=== PATIENT | female | born 1995 | race Caucasian/White ===

== ENCOUNTER 2017-04-20 14:27 | Emergency (ER) | payer OTHER ==
[~2017-04-20] VITALS: Ht 152.4 cm; Wt 59.9 kg
[2017-04-20 15:03] VITALS: BP 109/73
--- NOTE | 2017-04-20 17:50 | ED SKIN/ALLERGY COMPLAINT ---
History of Present Illness General Chief Complaint: Animal/Insect Bite Stated Complaint: TICK BITE Source: patient Exam Limitations: no limitations Vital Signs & Intake/Output Vital Signs & Intake/Output Vital Signs Date Time Temp Pulse Resp B/P B/P Pulse O2 O2 Flow FiO2 Mean Ox Delivery Rate 04/20 1503 96.0 88 20 109/73 98 Room Air Room Air Allergies Coded Allergies: NO KNOWN ALLERGIES (06/24/12) Reconcile Medications Clonidine HCl 0.1 MG TABLET 1 TAB PO QPM ANXIETY (Reported) Cyanocobalamin (Vitamin B-12) (Vitamin B-12) (Unknown Strength) TABLET ( Unknown Dose) PO DAILY SUPPLEMENT (Reported) Hydroxyzine Pamoate 50 MG CAPSULE 1 CAP PO TID PRN ANXIETY (Reported) Lurasidone HCl (Latuda) 40 MG TABLET 1 TAB PO QPM MENTAL HEALTH (Reported) [place]-3 Fatty Acids/Fish Oil (Fish Oil 1,000 MG Softgel) (Unknown Strength) CAPSULE (Unknown Dose) PO DAILY SUPPLEMENT (Reported) Sertraline HCl 100 MG TABLET 1 TAB PO DAILY MENTAL HEALTH (Reported) Triage Note: PT TO ED S/P ? BUG BITES TO BILATERAL ARMS. RED BULLSEYE SULEMAN NOTED TO RIGHT WRIST AREA, RED SULEMAN NOTED TO LEFT FOREARM. Triage Nurses Notes Reviewed? yes Onset: Gradual Duration: day(s): Timing: recent history Location: extremities : No Patient currently breastfeeds: No HPI: 21-year-old female presents emergency department complaining of bug bites. Patient noticed bug bites over the past 3 days. Bug bites are located on left anterior forearm, right posterior still forearm, right lower leg. The patient denies seeing a bug or tick prior to any of the bites. The patient states that her boyfriend's mother is a RN and saw the bites and thought she should be examined further for Lyme disease. The patient denies fevers, chills, malaise, arthralgias, cough, nausea, vomiting, diarrhea. Past History Travel History Traveled to [place] past 21 day No Medical History Any Pertinent Medical History? see below for history Neurological: NONE EENT: NONE Cardiovascular: NONE Respiratory: NONE Gastrointestinal: NONE Hepatic: NONE Renal: NONE Musculoskeletal: NONE Psychiatric: NONE Endocrine: NONE Blood Disorders: NONE Cancer(s): NONE RFID ENGINEER/Reproductive: bacterial vaginitis Surgical History Surgical History: non-contributory Psychosocial History Who do you live with Family What is your primary language [place] Tobacco Use: Never used ETOH Use: denies use Illicit Drug Use: denies illicit drug use Family History Hx Contributory? No Review of Systems Review of Systems Constitutional: Reports: no symptoms. EENTM: Reports: no symptoms. Respiratory: Reports: no symptoms. Cardiovascular: Reports: no symptoms. GI: Reports: no symptoms. Genitourinary: Reports: no symptoms. Musculoskeletal: Reports: no symptoms. Skin: Reports: see HPI. Neurological/Psychological: Reports: no symptoms. Hematologic/Endocrine: Reports: no symptoms. Immunologic/Allergic: Reports: no symptoms. All Other Systems: Reviewed and Negative Physical Exam Physical Exam General Appearance: well developed/nourished, no apparent distress, alert, awake Head: atraumatic, normal appearance Eyes: Bilateral: normal appearance. Ears, Nose, Throat: hearing grossly normal Neck: normal inspection, supple, full range of motion Respiratory: no respiratory distress Cardiovascular: regular rate/rhythm Back: normal inspection, normal range of motion Extremities: normal inspection, normal range of motion, bug bites presents as descriped below Neurologic/Psych: no motor/sensory deficits, awake, alert, oriented x 3 Skin: 3 raised mildly erythematous papules located on left and right forearm, and right lower leg papule on right forearm with slight surrounding erythema and central crusting Progress Differential Diagnosis: abscess/cellulitis, allergic reaction, contact dermatitis, lyme disease, urticaria Plan of Care: Orders Procedure Date/time Status LYME TITRE 04/20 1747 Active Laboratory Tests 04/20/17 1753: Lyme Disease Antibody Pending Patient's rash does not appear to be erythema migrans. Appears to be insect bites likely mosquito bites. She Had no known tick sighting or tick engorgement. She has no systemic signs and symptoms of Lyme disease such as arthralgias myalgias, fevers, chills. A Lyme titer was drawn and sent to the lab. The patient is nontoxic appearing, her vital signs are stable, she is in no acute distress. He was informed that she related to do repeat Lyme titer as Lyme antibodies do not always rise rapidly. She'll follow up with primary care doctor for this repeat Lyme titer, she was given referral for primary care physician. the patient is in agreement with the plan of care. (BEVERLY QIU,CARINA HONG) Departure Departure Disposition: HOME OR SELF CARE Condition: Stable Clinical Impression Primary Impression: Insect bite Secondary Impressions: Rash Referrals: PATIENT HAS NO PRIMARY CARE DR (PCP/Family) Additional Instructions: Follow up with Primary Care doctor given to you in packet today. We tested your blood for lyme disease, the result takes 2-3 days to come back, we will call you if the result is positive. You may need repeat blood work next month, ask your primary care doctor for repeat lyme titer and annual routine physcial. Return with any worsening symptoms or concerns including fevers, spreading rash, increasing swelling or pain, abdominal pain, vomiting, joint pains. Departure Forms: Customer Survey General Discharge Information
[2017-04-20] MEDS ORDERED: SERTRALINE HCL100 MG PO (18:09)
[2017-04-20] MEDS ORDERED: HYDROXYZINE PAM50 M1 PO (18:10)
[2017-04-20] MEDS ORDERED: FISH OIL 1,0001 EAC4 PO (18:10)
[2017-04-20] MEDS ORDERED: CLONIDINE HCL0.1 MG PO (18:10)
[2017-04-20] MEDS ORDERED: LATUDA40 M1 PO (18:11)
[2017-04-20] MEDS ORDERED: VITAMIN B-122000 MC1 PO (18:11)
== END 2017-04-20 18:24 ==
LOC: ERH 14:27
DX: S50.861A Insect bite (nonvenomous) of right forearm, initial encounter (principal); S50.862A Insect bite (nonvenomous) of left forearm, initial encounter; S80.861A Insect bite (nonvenomous), right lower leg, initial encounter; R21 Rash and other nonspecific skin eruption; W57.XXXA Bitten or stung by nonvenomous insect and other nonvenomous arthropods, initial encounter
CPT/HCPCS: 86618